=== PATIENT | male | born 1950 | race Caucasian/White ===

== ENCOUNTER → 2017-08-04 10:48 | Outpatient (CLI) | payer MEDICARE, SELFPAY ==
[2017-08-04 14:11] LABS: Albumin, Serum 3.2 g/dL (3.2-5.0); BUN 25 mg/dL (7-18); BUN/Creat Ratio 13.7 RATIO (10-20); Calcium,Total 9.6 mg/dL (8.5-10.1); Chloride 104 mmol/L (98-107); Creatinine, Serum 1.82 mg/dL (0.70-1.30); EST Glomerular Filtration Rate 40 mL/min (>60); Est Glom Filt Rate - Afr Amer 48 mL/min (>60); Glucose 151 mg/dL (74-106); Phosphorus 3.2 mg/dL (2.5-4.9); Potassium 4.8 mmol/L (3.5-5.1); Sodium Level 139 mmol/L (136-145)
== END ==
PROVIDERS: Family Provider Family Medicine; PCP Family Medicine; Visit Provider Internal Medicine Nephrology
DX: N18.3 Chronic kidney disease, stage 3 (moderate) (principal)
CPT/HCPCS: 36415; 80069

== ENCOUNTER → 2017-12-07 15:07 | Outpatient (CLI) | payer MEDICARE, SELFPAY ==
[2017-12-07 16:30] LABS: Albumin, Serum 3.5 g/dL (3.2-5.0); BUN 27 mg/dL (7-18); BUN/Creat Ratio 13.5 RATIO (10-20); Calcium,Total 9.4 mg/dL (8.5-10.1); Chloride 105 mmol/L (98-107); EST Glomerular Filtration Rate 36 mL/min (>60); Est Glom Filt Rate - Afr Amer 43 mL/min (>60); Glucose 123 mg/dL (74-106); Phosphorus 2.8 mg/dL (2.5-4.9); Potassium 4.6 mmol/L (3.5-5.1); Sodium Level 143 mmol/L (136-145)
== END ==
PROVIDERS: Family Provider Family Medicine; PCP Family Medicine; Visit Provider Internal Medicine Nephrology
DX: N18.3 Chronic kidney disease, stage 3 (moderate) (principal); E11.9 Type 2 diabetes mellitus without complications
CPT/HCPCS: 36415; 80069

== ENCOUNTER 2018-02-17 11:38 | Day surgery (SDC) | payer OTHER, MEDICARE, SELFPAY ==
[2018-02-17] VITALS (7 sets, daily range): BP systolic 96–120; BP diastolic 60–84; PULSE 48–64; RESP 15–16; TEMP 36.4–37.2; O2SAT 91–100; BMI 37.7
[2018-02-17 13:20] LABS: Bedside Glucose 175 mg/dL (70-110)
[2018-02-17] MEDS: Cefazolin 2 GM in 0.9% Normal Saline 100 ML IV (14:16)
[2018-02-17] MEDS: Bupiv/Epi 0.5% Mpf 30 ML Vial (14:35)
[2018-02-17] MEDS: VIAFLEX IV (14:54)
[2018-02-17] MEDS: HYDROMORPHONE HP IV (14:54)
== END 2018-02-17 16:16 | disposition home or self-care (01) ==
LOC: SDC 11:41 → AC 11:43
PROVIDERS: Family Provider Family Medicine; PCP Family Medicine; Referring Provider Anesthesiology Pain Medicine; Visit Provider Anesthesiology Pain Medicine
DX: Z45.42 Encounter for adjustment and management of neurostimulator (principal); M51.17 Intervertebral disc disorders with radiculopathy, lumbosacral region; S23.3XXA Sprain of ligaments of thoracic spine, initial encounter; M96.1 Postlaminectomy syndrome, not elsewhere classified; E11.22 Type 2 diabetes mellitus with diabetic chronic kidney disease; I12.9 Hypertensive chronic kidney disease with stage 1 through stage 4 chronic kidney disease, or unspecified chronic kidney disease; N18.9 Chronic kidney disease, unspecified; F41.9 Anxiety disorder, unspecified; F32.9 Major depressive disorder, single episode, unspecified; G47.30 Sleep apnea, unspecified; Z98.1 Arthrodesis status; Z79.82 Long term (current) use of aspirin; Z79.84 Long term (current) use of oral hypoglycemic drugs; Z79.899 Other long term (current) drug therapy
CPT/HCPCS: 63688; 82962; J7120

== ENCOUNTER 2019-02-23 15:30 | Emergency (ER) | payer MEDICARE, OTHER, SELFPAY ==
[2019-02-23 15:31] VITALS: BP 149/93; PULSE 60; RESP 17; TEMP 36.8; O2SAT 91; BMI 38.5
--- NOTE | 2019-02-23 16:09 | VDLE_ITS ---
Reason For Study: Swelling RIGHT LEFT GSV is normal. GSV is normal. CFV is compressible, spontaneous, phasic, CFV is compressible, spontaneous, phasic, competent and demonstrates normal competent, and demonstrates normal augmentation. augmentation. FV is compressible, spontaneous, phasic, FV is compressible, spontaneous, phasic, competent and demonstrates normal competent and demonstrates normal augmentation. augmentation. POP V is compressible, spontaneous, phasic, POP V is compressible, spontaneous, phasic, competent and demonstrates normal competent and demonstrates normal augmentation. augmentation. T/P Trunk is compressible. T/P Trunk is compressible. PTV is compressible. PTV is compressible. RT PerV is compressible. LT PerV is compressible. Procedure Exam performed portable in ED. A preliminary report was called and/or faxed to [facility]. Interpretation Summary No evidence for acute deep venous thrombosis bilateral lower extremities with patent and compressible bilateral great saphenous veins. Ordering Physician: Glenn Soriano Referring Physician: Steve Trejo Performed By: Lilia Marks RVT
[2019-02-23 16:28] LABS: Absolute Lymphocyte Count 1.95 X10^3/uL (0.83-4.51); Basophil# 0.05 X10^3/uL; Basophil% 0.8 % (0-1); Eosinophil# 0.18 X10^3/uL; Hematocrit 53.8 % (40-54); Hemoglobin 16.2 g/dL (13.0-16.5); Lymphocyte # 1.95 X10^3/ul (4.0); Lymphocyte % 32.4 % (19-41); Mean Corp Hgb Conc 30.1 g/dL (32-36); Mean Corpuscular Hgb 24.9 pg (27.0-32.0); Mean Corpuscular Volume 82.8 fL (80-94); Mean Platelet Vol. 10.7 fl (6.2-12.0); Monocyte# 0.77 X10^3/uL; Monocyte% 12.8 % (0-10); NRBC Flagged by Analyzer 0 % (0-5); Neutrophil # 3.04 X10^3/uL (2.7-7.7); Neutrophil % 50.7 % (47-70); Platelet Count 139 K/mm3 (150-450); RBC Distribution Width CV 15.9 % (11.6-14.6); RBC Distribution Width SD 45.1 fl (35.1-43.9)
--- NOTE | 2019-02-23 16:41 | ED.VIS.GEN ---
History of Present Illness Chief Complaint: Lower Extremity Injury Detail of Chief Complaint: swelling Informant: Patient, Family Onset: Weeks - 1.5 Context: Gradual Onset Timing: Continuous Quality: swollen, not painful Location: both legs; worse on left Current Severity: Severe Maximum Severity: Severe Worsened by: nothing in particular Relieved by: nothing; taking his lasix, not helping Associated Symptoms: none. no fevers, pain, sob, orthopnea Narrative: Patient has chronic edema in his legs. He states for the past week and a half it has been worse, and he has noticed that it is worse on the left. He was seen in the office today and sent to the ER to obtain Dopplers to rule out DVTs in both legs. He has never had a DVT and he is not anticoagulated. He states they have chronically appeared dark red, which is the appearance they are now. He denies a history of congestive heart failure but he does have significant renal disease and is scheduled to see nephrology within the next week or 2. Has had no recent blood work. No thoracic or systemic symptoms with this. - Past Medical History (1) Type 2 diabetes mellitus Status: Chronic (2) Depression Status: Chronic (3) ANNETTE (obstructive sleep apnea) Status: Chronic (4) BPH (benign prostatic hyperplasia) Status: Chronic (5) Mixed hyperlipidemia Status: Chronic (6) Varicose veins of both lower extremities Status: Chronic (7) Neuropathy Status: Chronic (8) GERD (gastroesophageal reflux disease) Status: Chronic Past Medical History - Allergies and Home Meds Allergies/Adverse Reactions: Allergies No Known Allergies Allergy (Verified 02/23/19 15:31) Primary Care Physician: Steve Trejo MD [Primary Care Provider] - Smoking Status: Never smoker Drugs: None Review of Systems General: Denies: Chills, Fever, Sweats Eyes: Denies: Visual changes - bilaterally, Diplopia ENT: Denies: Rhinorrhea, Sore throat Cardiovascular: Denies: Chest pain, Palpitations Respiratory: Denies: Dyspnea, Cough, Dyspnea on exertion, Orthopnea Gastrointestinal: Denies: Abdominal pain, Nausea, Vomiting, Diarrhea, Melena, Hematochezia Genitourinary: Denies: Dysuria, Hematuria, Frequency Musculoskeletal: Reports: Back pain - chronic, controlled by dilaudid pain pump, Swelling. Denies: Extremity Pain Skin: Denies: Rash, Wounds Neurological: Reports: Parasthesia - feet. Denies: Headache, Weakness Physical Exam Vital Signs/Narrative: Vital Signs Temp Pulse Resp BP Pulse Ox 02/23/19 15:31 98.2 F 60 17 149/93 H 91 Inital Vital Signs reviewed: Yes General: Well nourished, Well developed, No Acute Distress Head: Normocephalic, Atraumatic ENT: Moist mucous membranes, No rhinorrhea Neck: Supple, Nontender Cardiovascular: Regular rate, Regular rhythm, No murmurs, - - 3-second cap refill both feet without palpable dorsalis pedis or posterior tibial pulses. Respiratory: No distress, CTA bilaterally, Chest nontender Abdomen: Soft, Nontender, Nondistended, Normal bowel sounds Extremities: Edema - With nontender blanching dark red stasis dermatitis bilaterally, symmetric. 2+ edema all the way to the thighs. I do not detect any clinically obvious asymmetry. There are a couple of scattered healing wounds on both, all of which are nontender and without abscess or obvious infection. Skin: Normal color - Except for stasis dermatitis bilateral lower extremities from mid sloan down to toes, No rash. Negative for: Cyanosis Neurological: Alert, Oriented x3, Cranial nerves II-XII grossly intact, Normal Strength, Normal Sensation, Normal Gait Psychological: - - Flat affect noted Diagnostic/Tx/Re-eval Laboratory Results 02/23/19 02/23/19 16:15 16:15 WBC 6.0 RBC 6.50 H Hgb 16.2 Hct 53.8 MCV 82.8 MCH 24.9 L MCHC 30.1 L RDW Std Deviation 45.1 H RDW Coeff of Kathy 15.9 H Plt Count 139 L MPV 10.7 Immature Gran % (Auto) 0.300 Neut % (Auto) 50.7 Lymph % (Auto) 32.4 Sebastian % (Auto) 12.8 H Eos % (Auto) 3.0 Baso % (Auto) 0.8 Absolute Neuts (auto) 3.0 Absolute Lymphs (auto) 1.95 Nucleated RBC % 0 Sodium 136 Potassium 5.1 Chloride 100 Carbon Dioxide 30.0 Anion Gap 6 BUN 39 H Creatinine 2.11 H Estim Creat Clear Calc 36.18 Est GFR (MDRD) Af Amer 41 L Est GFR (MDRD) Non-Af 34 L BUN/Creatinine Ratio 18.5 Glucose 108 H Calcium 9.8 - Medical Decision Making Ultrasound of both lower extremities was obtained, ruling out acute DVT in both legs. His renal function is relatively stable, his creatinine is lower than it was a year ago. Advised to follow-up and continue his Lasix, increase elevation of his lower extremities for now. There is no evidence of an ischemic limb at this time. ED Disposition - Plan for ED Patient: Disposition: Home or Assisted Living Diagnosis: Chronic renal failure, Bilateral lower extremity edema, Stasis dermatitis of both legs Instructions: ED Peripheral Edema, Bilateral Referrals: Steve Trejo MD [Primary Care Provider] - 3-5 Days
[2019-02-23 16:43] LABS: Anion Gap 6 (5-15); BUN 39 mg/dL (7-18); BUN/Creat Ratio 18.5 RATIO (10-20); Calcium,Total 9.8 mg/dL (8.5-10.1); Chloride 100 mmol/L (98-107); Creatinine, Serum 2.11 mg/dL (0.70-1.30); EST Glomerular Filtration Rate 34 mL/min (>60); Est Glom Filt Rate - Afr Amer 41 mL/min (>60); Estimated Creatinine Clearance 36.18 ml/min; Glucose 108 mg/dL (74-106); Potassium 5.1 mmol/L (3.5-5.1); Sodium Level 136 mmol/L (136-145)
== END 2019-02-23 17:52 | disposition home or self-care (01) ==
PROVIDERS: Emergency Provider Emergency Medicine; Family Provider Family Medicine; PCP Family Medicine
DX: E11.22 Type 2 diabetes mellitus with diabetic chronic kidney disease (principal); N18.9 Chronic kidney disease, unspecified; I83.12 Varicose veins of left lower extremity with inflammation; I83.11 Varicose veins of right lower extremity with inflammation; F32.9 Major depressive disorder, single episode, unspecified; G47.33 Obstructive sleep apnea (adult) (pediatric); N40.0 Benign prostatic hyperplasia without lower urinary tract symptoms; E78.2 Mixed hyperlipidemia; E11.40 Type 2 diabetes mellitus with diabetic neuropathy, unspecified; K21.9 Gastro-esophageal reflux disease without esophagitis; M54.9 Dorsalgia, unspecified; G89.29 Other chronic pain; Z97.8 Presence of other specified devices; Z79.82 Long term (current) use of aspirin; Z79.84 Long term (current) use of oral hypoglycemic drugs; Z79.899 Other long term (current) drug therapy
CPT/HCPCS: 80048; 85025; 93970; 99283

== ENCOUNTER → 2019-10-12 10:01 | Outpatient (CLI) | payer MEDICARE, OTHER, SELFPAY ==
--- NOTE | 2019-10-12 10:07 | CT_ITS ---
STUDY: CT ABDOMEN AND PELVIS WITHOUT CONTRAST REASON FOR EXAM: Male, 69 years old. NAUSEA, ABD/BACK PAIN, APPENDECTOMY RADIATION DOSAGE (If Supplied By Facility): CTDIvol = ( 31.82 ) mGy, DLP = ( 1677.46 ) mGycm TECHNIQUE: Transaxial images were obtained from the dome of the diaphragm to the symphysis pubis without oral contrast, and without intravenous contrast. Sagittal and coronal images were reconstructed. Individualized dose optimization techniques were used for this CT. COMPARISON: None. FINDINGS: The visualized lung bases are unremarkable. The visualized portions of the heart are within normal limits. Normal liver. There are multiple gallstones. Normal spleen. There is diffuse atrophy of the pancreas. Normal bilateral adrenal glands. No obstructive uropathy, there is a punctate 2 to 3 mm nonobstructing stone in the lower pole of the left kidney Normal visualized stomach. Normal small intestine. Retained stool noted throughout the colon. There are scattered colonic diverticula. There are surgical clips in the region of the appendix consistent with a prior appendectomy. There is diffuse atherosclerotic calcification of the abdominal aorta, without a demonstrated aneurysm. Normal inferior vena cava. Normal retroperitoneum. Normal urinary bladder. Penile implants noted. Normal abdominal wall. There are diffuse degenerative and postsurgical changes of the visualized lumbar spine. Degenerative bony changes noted in the pelvis CT/Abdomen/Pelvis without Cont IMPRESSION: Cholelithiasis, no CT evidence of acute cholecystitis Nonobstructing left nephrolithiasis Degenerative and postsurgical changes in the lumbar spine, no hardware complication. Electronically Signed: Duane Odonnell MD at 10:55 EDT , Service support ,
== END ==
PROVIDERS: PCP Family Medicine; Referring Provider Nurse Practitioner Adult Health; Visit Provider Nurse Practitioner Adult Health
DX: R11.0 Nausea (principal)
CPT/HCPCS: 74176

== ENCOUNTER 2019-11-14 15:19 | Emergency (ER) | payer OTHER, MEDICARE, SELFPAY ==
[2019-11-14 15:21] VITALS: BP 141/83; PULSE 85; RESP 18; TEMP 36.8; O2SAT 93; BMI 41.0
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
[2019-11-14] MEDS: Diphth,Pertuss(Acell),Tet Vac 0.5 ML Vial IM (16:38)
[2019-11-14] MEDS: HYDROcodone Bitartrate/Apap 5/325 Tablet PO (16:39)
== END 2019-11-14 18:58 | disposition home or self-care (01) ==
PROVIDERS: Emergency Provider Emergency Medicine; PCP Family Medicine
DX: S61.011A Laceration without foreign body of right thumb without damage to nail, initial encounter (principal); M54.5 Low back pain; V43.52XA Car driver injured in collision with other type car in traffic accident, initial encounter; Y93.9 Activity, unspecified; Y92.9 Unspecified place or not applicable; E11.40 Type 2 diabetes mellitus with diabetic neuropathy, unspecified; F32.9 Major depressive disorder, single episode, unspecified; G47.33 Obstructive sleep apnea (adult) (pediatric); N40.0 Benign prostatic hyperplasia without lower urinary tract symptoms; K21.9 Gastro-esophageal reflux disease without esophagitis; E78.2 Mixed hyperlipidemia; Z79.82 Long term (current) use of aspirin; Z79.84 Long term (current) use of oral hypoglycemic drugs; Z79.899 Other long term (current) drug therapy
CPT/HCPCS: 12002; 72100; 73130; 90715; 99285

== ENCOUNTER → 2019-11-21 11:18 | Outpatient (CLI) | payer MEDICARE, OTHER, SELFPAY ==
[2019-11-14 15:21] VITALS: BMI 41.0
[2019-11-21 12:30] LABS: Protein, Urine (Random) 32.4 mg/dL (<11.9); Protein:Creat Ratio 597 mg/g CRE (0-200)
[2019-11-21 12:35] LABS: Anion Gap 2 (5-15); BUN 46 mg/dL (7-18); Calcium,Total 9.7 mg/dL (8.5-10.1); Chloride 107 mmol/L (98-107); Creatinine, Serum 2.71 mg/dL (0.70-1.30); EST Glomerular Filtration Rate 25 mL/min (>60); Est Glom Filt Rate - Afr Amer 30 mL/min (>60); Glucose 102 mg/dL (74-106); Potassium 5.8 mmol/L (3.5-5.1); Sodium Level 139 mmol/L (136-145)
== END ==
PROVIDERS: PCP Family Medicine; Visit Provider Internal Medicine Nephrology
DX: E11.9 Type 2 diabetes mellitus without complications (principal); E87.5 Hyperkalemia
CPT/HCPCS: 36415; 80048; 82570; 84156

== ENCOUNTER → 2020-04-09 11:15 | Outpatient (CLI) | payer MEDICARE, OTHER, SELFPAY | PROVIDERS: PCP Family Medicine; Visit Provider Internal Medicine Nephrology | DX: N18.4 Chronic kidney disease, stage 4 (severe) (principal) ==

== ENCOUNTER → 2020-10-20 08:30 | Outpatient (CLI) | payer MEDICARE, OTHER, SELFPAY ==
[2020-10-20 09:12] LABS: Albumin, Serum 3.6 g/dL (3.2-5.0); BUN 42 mg/dL (7-18); BUN/Creat Ratio 18.8 RATIO (10-20); Calcium,Total 8.8 mg/dL (8.5-10.1); Chloride 103 mmol/L (98-107); Creatinine, Serum 2.24 mg/dL (0.70-1.30); EST Glomerular Filtration Rate 31 mL/min (>60); Est Glom Filt Rate - Afr Amer 38 mL/min (>60); Glucose 115 mg/dL (74-106); Phosphorus 2.8 mg/dL (2.5-4.9); Potassium 4.9 mmol/L (3.5-5.1); Sodium Level 136 mmol/L (136-145)
[2020-10-21 08:36] LABS: PTHIN 130.3 pg/mL (18.4-80.1)
== END ==
PROVIDERS: PCP Family Medicine; Referring Provider Internal Medicine Nephrology; Visit Provider Internal Medicine Nephrology
DX: N18.4 Chronic kidney disease, stage 4 (severe) (principal)
CPT/HCPCS: 36415; 80069; 83970

== ENCOUNTER → 2021-02-26 11:50 | Outpatient (CLI) | payer MEDICARE, OTHER, SELFPAY ==
[2021-02-26 12:57] LABS: Hematocrit 48.5 % (40-54); Hemoglobin 14.3 g/dL (13.0-16.5); Mean Corp Hgb Conc 29.5 g/dL (32-36); Mean Corpuscular Hgb 24.4 pg (27.0-32.0); Mean Corpuscular Volume 82.8 fL (80-94); Mean Platelet Vol. 10.9 fl (6.2-12.0); Platelet Count 114 K/mm3 (150-450); RBC Distribution Width CV 15.7 % (11.6-14.6); RBC Distribution Width SD 46.9 fl (35.1-43.9); Red Blood Count 5.86 M/mm3 (4.6-6.2); White Blood Count 5.1 K/mm3 (4.4-11.0)
[2021-02-26 13:21] LABS: Albumin, Serum 3.2 g/dL (3.2-5.0); BUN 43 mg/dL (7-18); BUN/Creat Ratio 22.1 RATIO (10-20); Chloride 103 mmol/L (98-107); Creatinine, Serum 1.95 mg/dL (0.70-1.30); EST Glomerular Filtration Rate 36 mL/min (>60); Est Glom Filt Rate - Afr Amer 44 mL/min (>60); Glucose 120 mg/dL (74-106); PTHIN 120.9 pg/mL (18.4-80.1); Phosphorus 2.7 mg/dL (2.5-4.9); Potassium 4.6 mmol/L (3.5-5.1); Sodium Level 136 mmol/L (136-145)
== END ==
PROVIDERS: PCP Family Medicine; Referring Provider Internal Medicine Nephrology; Visit Provider Internal Medicine Nephrology
DX: E11.22 Type 2 diabetes mellitus with diabetic chronic kidney disease (principal); N18.4 Chronic kidney disease, stage 4 (severe)
CPT/HCPCS: 36415; 80069; 83970; 85027

== ENCOUNTER → 2021-09-02 | Outpatient (CLI) | payer MEDICARE, OTHER, SELFPAY ==
[2021-09-02 13:40] LABS: Protein, Urine (Random) 32.6 mg/dL (<11.9); Protein:Creat Ratio 569 mg/g CRE (0-200)
[2021-09-02 13:53] LABS: Albumin, Serum 3.4 g/dL (3.2-5.0); BUN 61 mg/dL (7-18); BUN/Creat Ratio 18.2 RATIO (10-20); Calcium,Total 8.9 mg/dL (8.5-10.1); Chloride 104 mmol/L (98-107); Creatinine, Serum 3.36 mg/dL (0.70-1.30); EST Glomerular Filtration Rate 19 mL/min (>60); Est Glom Filt Rate - Afr Amer 24 mL/min (>60); Glucose 122 mg/dL (74-106); Phosphorus 3.8 mg/dL (2.5-4.9); Potassium 5.5 mmol/L (3.5-5.1); Sodium Level 137 mmol/L (136-145)
[2021-09-02 13:54] LABS: PTHIN 215.4 pg/mL (18.4-80.1)
== END | disposition home or self-care (01) ==
LOC: LABSPEC 12:20 → LAB 12:24
PROVIDERS: PCP Family Medicine; Referring Provider Internal Medicine Nephrology; Visit Provider Internal Medicine Nephrology
DX: N18.4 Chronic kidney disease, stage 4 (severe) (principal); R80.9 Proteinuria, unspecified
CPT/HCPCS: 36415; 80069; 82570; 83970; 84156

== ENCOUNTER → 2021-09-08 | Outpatient (CLI) | payer MEDICARE, OTHER, SELFPAY ==
[2021-09-08 13:04] LABS: Anion Gap 5 (5-15); BUN 45 mg/dL (7-18); BUN/Creat Ratio 20.3 RATIO (10-20); Calcium,Total 9.1 mg/dL (8.5-10.1); Chloride 102 mmol/L (98-107); Creatinine, Serum 2.22 mg/dL (0.70-1.30); EST Glomerular Filtration Rate 31 mL/min (>60); Est Glom Filt Rate - Afr Amer 38 mL/min (>60); Glucose 195 mg/dL (74-106); Potassium 4.7 mmol/L (3.5-5.1); Sodium Level 137 mmol/L (136-145)
== END | disposition home or self-care (01) ==
LOC: POLAB3 11:44
PROVIDERS: PCP Family Medicine; Visit Provider Internal Medicine Nephrology
DX: E87.5 Hyperkalemia (principal)
CPT/HCPCS: 36415; 80048

== ENCOUNTER → 2021-12-03 | Outpatient (CLI) | payer MEDICARE, OTHER, SELFPAY ==
[2021-12-03 13:05] LABS: PTHIN 133.4 pg/mL (18.4-80.1)
[2021-12-03 13:07] LABS: Albumin, Serum 3.3 g/dL (3.2-5.0); BUN 54 mg/dL (7-18); BUN/Creat Ratio 25.7 RATIO (10-20); Calcium,Total 9.6 mg/dL (8.5-10.1); Chloride 110 mmol/L (98-107); EST Glomerular Filtration Rate 33 mL/min (>60); Est Glom Filt Rate - Afr Amer 40 mL/min (>60); Glucose 122 mg/dL (74-106); Phosphorus 2.4 mg/dL (2.5-4.9); Potassium 5.3 mmol/L (3.5-5.1); Sodium Level 139 mmol/L (136-145)
== END | disposition home or self-care (01) ==
LOC: LAB 12:01
PROVIDERS: PCP Family Medicine; Visit Provider Internal Medicine Nephrology
DX: N18.4 Chronic kidney disease, stage 4 (severe) (principal); N25.81 Secondary hyperparathyroidism of renal origin
CPT/HCPCS: 36415; 80069; 83970

== ENCOUNTER → 2021-12-08 | Outpatient (CLI) | payer MEDICARE, OTHER, SELFPAY ==
[2021-12-08 13:06] LABS: Anion Gap 5 (5-15); BUN 53 mg/dL (7-18); BUN/Creat Ratio 27.6 RATIO (10-20); Calcium,Total 8.9 mg/dL (8.5-10.1); Chloride 107 mmol/L (98-107); Creatinine, Serum 1.92 mg/dL (0.70-1.30); EST Glomerular Filtration Rate 37 mL/min (>60); Est Glom Filt Rate - Afr Amer 45 mL/min (>60); Glucose 151 mg/dL (74-106); Potassium 5.4 mmol/L (3.5-5.1); Sodium Level 137 mmol/L (136-145)
== END | disposition home or self-care (01) ==
LOC: POLAB3 10:58
PROVIDERS: PCP Family Medicine; Visit Provider Internal Medicine Nephrology
DX: E87.5 Hyperkalemia (principal)
CPT/HCPCS: 36415; 80048

== ENCOUNTER → 2022-05-12 | Outpatient (CLI) | payer MEDICARE, OTHER, SELFPAY ==
[2022-05-12 13:03] LABS: PTHIN 105.9 pg/mL (18.4-80.1)
[2022-05-12 13:07] LABS: Albumin, Serum 3.3 g/dL (3.2-5.0); BUN 40 mg/dL (7-18); BUN/Creat Ratio 17.7 RATIO (10-20); Calcium,Total 9.6 mg/dL (8.5-10.1); Chloride 106 mmol/L (98-107); Creatinine, Serum 2.26 mg/dL (0.70-1.30); EST Glomerular Filtration Rate 31 mL/min (>60); Est Glom Filt Rate - Afr Amer 37 mL/min (>60); Glucose 115 mg/dL (74-106); Phosphorus 2.7 mg/dL (2.5-4.9); Potassium 4.9 mmol/L (3.5-5.1); Sodium Level 139 mmol/L (136-145)
== END | disposition home or self-care (01) ==
LOC: LAB 11:19
PROVIDERS: PCP Family Medicine; Visit Provider Internal Medicine Nephrology
DX: E11.22 Type 2 diabetes mellitus with diabetic chronic kidney disease (principal); N18.4 Chronic kidney disease, stage 4 (severe); N25.81 Secondary hyperparathyroidism of renal origin
CPT/HCPCS: 36415; 80069; 83970

== ENCOUNTER → 2022-07-20 | Outpatient (CLI) | payer MEDICARE, OTHER, SELFPAY ==
[2022-07-20 13:48] LABS: Albumin, Serum 3.2 g/dL (3.2-5.0); BUN 43 mg/dL (7-18); BUN/Creat Ratio 17.6 RATIO (10-20); Calcium,Total 9.4 mg/dL (8.5-10.1); Chloride 108 mmol/L (98-107); Creatinine, Serum 2.44 mg/dL (0.70-1.30); EST Glomerular Filtration Rate 28 mL/min (>60); Est Glom Filt Rate - Afr Amer 34 mL/min (>60); Glucose 129 mg/dL (74-106); Phosphorus 2.3 mg/dL (2.5-4.9); Potassium 5.6 mmol/L (3.5-5.1); Sodium Level 135 mmol/L (136-145)
== END | disposition home or self-care (01) ==
LOC: LAB 12:29
PROVIDERS: PCP Family Medicine; Referring Provider Internal Medicine Nephrology; Visit Provider Internal Medicine Nephrology
DX: N18.4 Chronic kidney disease, stage 4 (severe) (principal)
CPT/HCPCS: 36415; 80069

== ENCOUNTER → 2022-08-04 | Outpatient (CLI) | payer OTHER, MEDICARE, SELFPAY ==
[2022-08-04 15:48] LABS: Amphetamine Urine VISTA NEGATIVE (<1000 ng/mL); Barbiturate Urine VISTA NEGATIVE (< 200 ng/mL); Benzodiazepine Urine VISTA NEGATIVE (< 200 ng/mL); Cocaine Urine VISTA NEGATIVE (< 300 ng/mL); Ecstacy Urine VISTA NEGATIVE (< 500 ng/mL); Methadone Urine VISTA NEGATIVE (< 300 ng/mL); PCP Urine VISTA NEGATIVE (< 25 ng/mL); THC Urine VISTA NEGATIVE (< 50 ng/mL); Vista UDS pH Range 5
== END | disposition home or self-care (01) ==
PROVIDERS: PCP Family Medicine; Referring Provider Anesthesiology Pain Medicine; Visit Provider Anesthesiology Pain Medicine
DX: F11.20 Opioid dependence, uncomplicated (principal)
CPT/HCPCS: 80307

== ENCOUNTER → 2022-08-17 | Outpatient (CLI) | payer MEDICARE, OTHER, SELFPAY ==
[2022-08-17 13:13] LABS: Anion Gap 4 (5-15); BUN 40 mg/dL (7-18); BUN/Creat Ratio 14.9 RATIO (10-20); Calcium,Total 9.8 mg/dL (8.5-10.1); Chloride 106 mmol/L (98-107); Creatinine, Serum 2.68 mg/dL (0.70-1.30); EST Glomerular Filtration Rate 25 mL/min (>60); Est Glom Filt Rate - Afr Amer 30 mL/min (>60); Glucose 160 mg/dL (74-106); Sodium Level 140 mmol/L (136-145)
== END | disposition home or self-care (01) ==
LOC: POLAB3 11:55
PROVIDERS: PCP Family Medicine; Visit Provider Internal Medicine Nephrology
DX: E87.5 Hyperkalemia (principal)
CPT/HCPCS: 36415; 80048

== ENCOUNTER → 2022-12-31 | Outpatient (CLI) | payer MEDICARE, OTHER, SELFPAY ==
[2022-12-31 16:05] LABS: Albumin, Serum 3.1 g/dL (3.2-5.0); BUN 24 mg/dL (7-18); BUN/Creat Ratio 10.1 RATIO (10-20); Calcium,Total 9.4 mg/dL (8.5-10.1); Chloride 108 mmol/L (98-107); Creatinine, Serum 2.38 mg/dL (0.70-1.30); EST Glomerular Filtration Rate 29 mL/min (>60); Est Glom Filt Rate - Afr Amer 35 mL/min (>60); Glucose 151 mg/dL (74-106); Phosphorus 2.1 mg/dL (2.5-4.9); Potassium 5.5 mmol/L (3.5-5.1); Sodium Level 134 mmol/L (136-145)
== END | disposition home or self-care (01) ==
LOC: LAB 12:03
PROVIDERS: PCP Family Medicine; Referring Provider Internal Medicine Nephrology; Visit Provider Internal Medicine Nephrology
DX: E11.22 Type 2 diabetes mellitus with diabetic chronic kidney disease (principal); N18.4 Chronic kidney disease, stage 4 (severe)
CPT/HCPCS: 36415; 80069

== ENCOUNTER → 2023-01-05 | Outpatient (CLI) | payer MEDICARE, OTHER, SELFPAY ==
[2023-01-05 12:40] LABS: Potassium 5.3 mmol/L (3.5-5.1)
== END | disposition home or self-care (01) ==
PROVIDERS: PCP Family Medicine; Visit Provider Internal Medicine Nephrology
DX: E87.5 Hyperkalemia (principal)
CPT/HCPCS: 36415; 84132

== ENCOUNTER → 2023-01-27 | Outpatient (CLI) | payer MEDICARE, OTHER, SELFPAY | END | disposition home or self-care (01) | LOC: LAB 11:08 | PROVIDERS: PCP Family Medicine; Referring Provider Internal Medicine Nephrology; Visit Provider Internal Medicine Nephrology | DX: E11.22 Type 2 diabetes mellitus with diabetic chronic kidney disease (principal); N18.4 Chronic kidney disease, stage 4 (severe) ==

== ENCOUNTER → 2023-03-16 | Outpatient (CLI) | payer MEDICARE, OTHER, SELFPAY ==
[2023-03-16 13:40] LABS: Hematocrit 55.2 % (40-54); Mean Corp Hgb Conc 30.8 g/dL (32-36); Mean Corpuscular Hgb 28.7 pg (27.0-32.0); Mean Corpuscular Volume 93.1 fL (80-94); Mean Platelet Vol. 10.6 fl (6.2-12.0); Platelet Count 111 K/mm3 (150-450); RBC Distribution Width CV 12.2 % (11.6-14.6); RBC Distribution Width SD 42.4 fl (35.1-43.9); Red Blood Count 5.93 M/mm3 (4.6-6.2)
[2023-03-16 13:56] LABS: Albumin, Serum 3.2 g/dL (3.2-5.0); BUN 30 mg/dL (7-18); BUN/Creat Ratio 12.4 RATIO (10-20); Chloride 105 mmol/L (98-107); Creatinine, Serum 2.41 mg/dL (0.70-1.30); EST Glomerular Filtration Rate 28 mL/min (>60); Est Glom Filt Rate - Afr Amer 34 mL/min (>60); Glucose 132 mg/dL (74-106); Phosphorus 2.7 mg/dL (2.5-4.9); Potassium 5.1 mmol/L (3.5-5.1); Sodium Level 138 mmol/L (136-145)
[2023-03-16 13:58] LABS: PTHIN 83.3 pg/mL (18.4-80.1)
== END | disposition home or self-care (01) ==
LOC: LAB 13:12
PROVIDERS: PCP Family Medicine; Visit Provider Internal Medicine Nephrology
DX: E11.22 Type 2 diabetes mellitus with diabetic chronic kidney disease (principal); N18.4 Chronic kidney disease, stage 4 (severe)
CPT/HCPCS: 36415; 80069; 83970; 85027

== ENCOUNTER → 2023-07-20 | Outpatient (CLI) | payer MEDICARE, OTHER, SELFPAY ==
[2023-07-20 13:30] LABS: PTHIN 132.2 pg/mL (18.4-80.1)
[2023-07-20 13:33] LABS: Albumin, Serum 3.1 g/dL (3.2-5.0); BUN 33 mg/dL (7-18); BUN/Creat Ratio 15.5 RATIO (10-20); Calcium,Total 9.3 mg/dL (8.5-10.1); Chloride 108 mmol/L (98-107); Creatinine, Serum 2.13 mg/dL (0.70-1.30); EST Glomerular Filtration Rate 33 mL/min (>60); Est Glom Filt Rate - Afr Amer 40 mL/min (>60); Glucose 211 mg/dL (74-106); Phosphorus 2.2 mg/dL (2.5-4.9); Potassium 5.2 mmol/L (3.5-5.1); Sodium Level 136 mmol/L (136-145)
== END | disposition home or self-care (01) ==
LOC: LAB 11:04
PROVIDERS: PCP Family Medicine; Referring Provider Internal Medicine Nephrology; Visit Provider Internal Medicine Nephrology
DX: E11.22 Type 2 diabetes mellitus with diabetic chronic kidney disease (principal); N25.81 Secondary hyperparathyroidism of renal origin
CPT/HCPCS: 36415; 36416; 80069; 83970; 85610

== ENCOUNTER → 2023-07-26 | Outpatient (CLI) | payer MEDICARE, OTHER, SELFPAY ==
[2023-07-26 13:43] LABS: Protein, Urine (Random) 87.2 mg/dL (<11.9); Protein:Creat Ratio 1101 mg/g CRE (0-200)
[2023-07-26 13:52] LABS: Albumin, Serum 3.2 g/dL (3.2-5.0); BUN 51 mg/dL (7-18); BUN/Creat Ratio 21.1 RATIO (10-20); Chloride 109 mmol/L (98-107); Creatinine, Serum 2.42 mg/dL (0.70-1.30); EST Glomerular Filtration Rate 28 mL/min (>60); Est Glom Filt Rate - Afr Amer 34 mL/min (>60); Glucose 160 mg/dL (74-106); Phosphorus 2.9 mg/dL (2.5-4.9); Sodium Level 137 mmol/L (136-145)
== END | disposition home or self-care (01) ==
LOC: LAB 11:34
PROVIDERS: PCP Family Medicine; Referring Provider Internal Medicine Nephrology; Visit Provider Internal Medicine Nephrology
DX: E11.22 Type 2 diabetes mellitus with diabetic chronic kidney disease (principal)
CPT/HCPCS: 36415; 80069; 82570; 84156

== ENCOUNTER → 2023-08-24 | Outpatient (CLI) | payer MEDICARE, OTHER, SELFPAY ==
--- NOTE | 2023-08-24 15:12 | NEURO ---
NCS and/or EMG Patient Report Ordering Doctor: Steve Trejo DATE OF SERVICE: 08/24/23 Matty presents for electrodiagnostic testing of the upper limbs. He reports numbness and tingling in both hands and weakness. Electrodiagnostic findings: Right median motor nerve demonstrates prolonged distal latency with normal amplitude and reduced conduction velocity. Left median motor nerve demonstrates prolonged distal latency, with normal amplitude and reduced conduction velocity. Ulnar motor nerve demonstrates normal distal latency and amplitude with reduced conduction velocity. There is no significant drop in conduction across the elbow. Left ulnar motor nerve demonstrates normal distal latency and amplitude with reduced conduction velocity. There is no significant drop in conduction across the elbow. Prolonged right median, left median and left ulnar F?waves. Prolonged median sensory latency at the wrist bilaterally. Needle EMG testing was performed in the upper limbs. All muscles tested showed no evidence of denervation with normal motor unit action potentials. Electrodiagnostic Impression: This is an abnormal study. 1. Electrodiagnostic findings are suggestive of bilateral median mononeuropathy. This is consistent with a moderate bilateral carpal tunnel syndrome. 2. Recommend correlation with the lower limbs to evaluate for peripheral polyneuropathy Multi Select Codes Neurology Neurology Interp Codes: 99078-88 Musc test done w/n test comp (interp) (2) and 44470-42 Nrv cndj test 9-10 studies (interp)
== END | disposition home or self-care (01) ==
LOC: PSN 12:57
PROVIDERS: PCP Family Medicine; Referring Provider Family Medicine; Visit Provider Family Medicine
DX: R20.0 Anesthesia of skin (principal); R20.2 Paresthesia of skin
CPT/HCPCS: 95886; 95911

== ENCOUNTER → 2023-08-31 | Outpatient (CLI) | payer MEDICARE, OTHER, SELFPAY ==
--- NOTE | 2023-08-31 15:20 | NEURO ---
NCS and/or EMG Patient Report Ordering Doctor: Steve Trejo DATE OF SERVICE: 08/31/23 Matty presents Electrodiagnostic testing of the lower limbs. He reports numbness below the knees bilaterally, worse on the right side. He has a history of lumbar spine surgery. Electrodiagnostic findings: Right peroneal motor nerve demonstrates normal distal latency with reduced amplitude and reduced conduction velocity. Absent peroneal motor response on the left side. Absent tibial motor response bilaterally. Sensory responses were not obtainable. H-reflex prolonged bilaterally. Needle EMG testing was performed in the lower limbs. Motor unit action potentials of increased amplitude and duration noted bilaterally in the peroneus longus and tibialis anterior. Electrodiagnostic impression: This is an abnormal study in the lower limbs. 1. 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 2. There is no electrodiagnostic evidence for lumbosacral radiculopathy. Multi Select Codes Neurology Neurology Interp Codes: 46654-65 Musc test done w/n test comp (interp) (2) and 29262-19 Nrv cndj test 9-10 studies (interp)
== END | disposition home or self-care (01) ==
LOC: PSN 06:57
PROVIDERS: PCP Family Medicine; Referring Provider Family Medicine; Visit Provider Family Medicine
DX: R20.0 Anesthesia of skin (principal); R20.2 Paresthesia of skin
CPT/HCPCS: 95886; 95911

== ENCOUNTER 2023-09-09 08:32 | Day surgery (SDC) | payer OTHER, SELFPAY ==
[2023-09-09 09:11] VITALS: BP 128/75; PULSE 54; RESP 16; TEMP 36.2; O2SAT 96; BMI 34.9
[2023-09-09] MEDS: Lactated Ringers 1,000 ML 15 ML IV (09:19)
[2023-09-09 09:29] LABS: Bedside Glucose 77 mg/dL (74-106)
[2023-09-09] MEDS: Bupiv/Epi 0.25% 30 ML Vial (10:39)
[2023-09-09] MEDS: Lidocaine 0.5% (50 ml) 50 ML Vial (10:39)
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
[2023-09-09] MEDS: VIAFLEX IV (11:25)
[2023-09-09] MEDS: HYDROMORPHONE HP IV (11:25)
[2023-09-09 12:02] VITALS: BP 128/75; BP 139/88; PULSE 49; RESP 16; TEMP 36.4; O2SAT 100
[2023-09-09 12:05] VITALS: BP 128/75; BP 149/85; PULSE 48; RESP 16; O2SAT 100
[2023-09-09 12:10] VITALS: BP 128/75; BP 143/84; PULSE 51; RESP 16; O2SAT 99
[2023-09-09 12:15] VITALS: BP 128/75; BP 142/87; PULSE 50; RESP 17; TEMP 36.5; O2SAT 100
[2023-09-09 12:29] VITALS: BP 128/75
== END 2023-09-09 13:19 | disposition home or self-care (01) ==
PROVIDERS: PCP Family Medicine; Referring Provider Anesthesiology Pain Medicine; Visit Provider Anesthesiology Pain Medicine
PROC: (CPT 62362; principal; 2023-09-09 09:45)
DX: Z45.1 Encounter for adjustment and management of infusion pump (principal); M96.1 Postlaminectomy syndrome, not elsewhere classified; Z99.81 Dependence on supplemental oxygen; Z90.49 Acquired absence of other specified parts of digestive tract; I10 Essential (primary) hypertension; Z79.899 Other long term (current) drug therapy
CPT/HCPCS: 62362; 72020; 76000; 82962; J7120

== ENCOUNTER → 2024-01-17 | Outpatient (CLI) | payer MEDICARE, OTHER, SELFPAY ==
[2024-01-17 14:25] LABS: Albumin, Serum 3.1 g/dL (3.2-5.0); BUN 30 mg/dL (7-18); BUN/Creat Ratio 12.5 RATIO (10-20); Calcium,Total 9.7 mg/dL (8.5-10.1); Chloride 105 mmol/L (98-107); EST Glomerular Filtration Rate 28 mL/min (>60); Est Glom Filt Rate - Afr Amer 34 mL/min (>60); Glucose 175 mg/dL (74-106); Phosphorus 2.5 mg/dL (2.5-4.9); Potassium 5.2 mmol/L (3.5-5.1); Sodium Level 136 mmol/L (136-145)
== END | disposition home or self-care (01) ==
LOC: LAB 13:28
PROVIDERS: PCP Family Medicine; Referring Provider Internal Medicine Nephrology; Visit Provider Internal Medicine Nephrology
DX: E11.22 Type 2 diabetes mellitus with diabetic chronic kidney disease (principal); N18.4 Chronic kidney disease, stage 4 (severe)
CPT/HCPCS: 36415; 80069; 82570; 84156

== ENCOUNTER → 2024-04-02 | Outpatient (CLI) | payer MEDICARE, OTHER, SELFPAY ==
[2024-04-02 14:32] LABS: Anion Gap 3 (5-15); BUN 42 mg/dL (7-18); BUN/Creat Ratio 15.1 RATIO (10-20); Calcium,Total 9.7 mg/dL (8.5-10.1); Chloride 108 mmol/L (98-107); Creatinine, Serum 2.78 mg/dL (0.70-1.30); EST Glomerular Filtration Rate 24 mL/min (>60); Est Glom Filt Rate - Afr Amer 29 mL/min (>60); Glucose 87 mg/dL (74-106); Potassium 4.6 mmol/L (3.5-5.1); Sodium Level 140 mmol/L (136-145)
== END | disposition home or self-care (01) ==
LOC: LAB 13:17
PROVIDERS: PCP Family Medicine; Referring Provider Internal Medicine Nephrology; Visit Provider Internal Medicine Nephrology
DX: E87.5 Hyperkalemia (principal)
CPT/HCPCS: 36415; 80048

== ENCOUNTER → 2024-07-05 | Outpatient (CLI) | payer MEDICARE, OTHER, SELFPAY ==
[2024-07-05 13:35] LABS: Phosphorus 3.5 mg/dL (2.7-4.5)
[2024-07-05 14:56] LABS: Albumin, Serum 3.5 g/dL (3.4-4.8); Anion Gap 11 (5-15); BUN 36 mg/dL (4-19); BUN/Creat Ratio 16.8 RATIO (10-20); Carbon Dioxide 24.5 mmol/L (21.0-32.0); Chloride 102 mmol/L (98-108); Creatinine, Serum 2.16 mg/dL (0.70-1.20); EST Glomerular Filtration Rate 32 (>60); Glucose 140 mg/dL (70-99); Potassium 5.1 mmol/L (3.3-5.1); Sodium Level 137 mmol/L (133-145)
== END | disposition home or self-care (01) ==
LOC: LAB 12:06
PROVIDERS: PCP Family Medicine; Referring Provider Internal Medicine Nephrology; Visit Provider Internal Medicine Nephrology
DX: N18.4 Chronic kidney disease, stage 4 (severe) (principal)
CPT/HCPCS: 36415; 80069

== ENCOUNTER 2024-07-09 12:30 | Emergency (ER) | payer MEDICARE, OTHER, SELFPAY ==
[2024-07-09 12:33] VITALS: BP 144/76; PULSE 71; RESP 19; TEMP 36.9
[2024-07-09] MEDS: Naloxone 2 MG/2 ML Syringe NASAL (12:40)
[2024-07-09] MEDS: Naloxone 0.4 MG/ML Syringe IV ×3 (12:44→12:59)
[2024-07-09] MEDS: Ondansetron 4 MG/2 ML Vial IV (12:50)
[2024-07-09 12:52] VITALS: BP 137/79; PULSE 71; RESP 25; O2SAT 93
[2024-07-09] MEDS: 0.9% Normal Saline (1000mL) 1,000 ML 999 ML IV (12:54)
[2024-07-09 13:07] VITALS: BP 159/104; PULSE 83; RESP 28; O2SAT 97
--- NOTE | 2024-07-09 13:08 | EKG12_ITS ---
Test Reason : Blood Pressure : */* mmHG Vent. Rate : 65 BPM Atrial Rate : 65 BPM P-R Int : 156 ms QRS Dur : 114 ms QT Int : 426 ms P-R-T Axes : 23 -32 29 degrees QTcB Int : 443 ms Normal sinus rhythm Left axis deviation Incomplete left bundle branch block Minimal voltage criteria for LVH, may be normal variant ( Robbie product ) Abnormal ECG Confirmed by OK ARZOLA, KRISTINA ([id number]), publishing editor MEIR DING ([id number]) on 07/11/2024 8:15:44 AM Referred By: AKUA Confirmed By: KRISTINA EUCEDA MD
[2024-07-09 13:22] LABS: Absolute Lymphocyte Count 2.24 X10^3/uL (0.83-4.51); Absolute Neutrophil Count 2.3 X10^3/uL (2.0-7.7); Basophil# 0.05 X10^3/uL; Eosinophil# 0.21 X10^3/uL; Eosinophils% 4.1 % (0-5); Hematocrit 39.3 % (40-54); Hemoglobin 12.8 g/dL (13.0-16.5); Lymphocyte # 2.24 X10^3/ul (0.83-4.51); Lymphocyte % 43.8 % (19-41); Mean Corp Hgb Conc 32.6 g/dL (32-36); Mean Corpuscular Hgb 29.5 pg (27.0-32.0); Mean Corpuscular Volume 90.6 fL (80-94); Mean Platelet Vol. 10.6 fl (6.2-12.0); Monocyte# 0.32 X10^3/uL; Monocyte% 6.3 % (0-10); NRBC Flagged by Analyzer 0 % (0-5); Neutrophil # 2.27 X10^3/uL (2.7-7.7); Neutrophil % 44.2 % (47-70); Platelet Count 118 K/mm3 (150-450); RBC Distribution Width CV 11.6 % (11.6-14.6); RBC Distribution Width SD 38.7 fl (35.1-43.9); Red Blood Count 4.34 M/mm3 (4.6-6.2); White Blood Count 5.1 K/mm3 (4.4-11.0)
--- NOTE | 2024-07-09 13:25 | CT_ITS ---
EXAM: CT Head Without Intravenous Contrast CLINICAL INDICATION: AMS TECHNIQUE: Axial computed tomography images of the head/brain without intravenous contrast. This CT exam was performed using one or more of the following dose reduction techniques: automated exposure control, adjustment of the mA and/or kV according to patient size, and/or use of iterative reconstruction technique. COMPARISON: No relevant prior studies available. FINDINGS: ARTIFACTS: Motion artifact. BRAIN AND EXTRA-AXIAL SPACES: No acute intracranial hemorrhage, midline shift or mass effect. If symptoms persist, further evaluation with MRI is recommended. No significant white matter disease. BONES/JOINTS: Unremarkable. No acute fracture. SOFT TISSUES: Unremarkable. SINUSES: Unremarkable as visualized. No acute sinusitis. MASTOID AIR CELLS: Unremarkable as visualized. No mastoid effusion. CT/Brain/Head without Contrast IMPRESSION: No acute intracranial hemorrhage, midline shift or mass effect. If symptoms per sist, further evaluation with MRI is recommended. Reading [facility]
[2024-07-09 13:31] LABS: International Normalized Ratio 1.1; Prothrombin Time (Protime)PT. 13.9 SECONDS (11.7-14.9)
[2024-07-09 13:32] LABS: Partial Thromboplast Time 26.6 Seconds (24.1-36.2)
--- NOTE | 2024-07-09 13:39 | RAD_ITS ---
EXAM: XR Chest, 1 View CLINICAL INDICATION: ALTERED MENTAL STATUS TECHNIQUE: Frontal view of the chest. COMPARISON: No relevant prior studies available. FINDINGS: LUNGS AND PLEURAL SPACES: See below. HEART: Cardiomegaly with mild congestion. MEDIASTINUM: Unremarkable. Normal mediastinal contour. BONES/JOINTS: Unremarkable. No acute fracture. RAD/Chest 1 View (Portable) IMPRESSION: Cardiomegaly with mild congestion. Reading [facility]
[2024-07-09 13:47] LABS: Alcohol, Blood (Medical)-Serum < 10.1 mg/dL (<=10.0)
[2024-07-09 14:00] VITALS: BP 143/81; PULSE 61; RESP 16; O2SAT 98
[2024-07-09 14:07] LABS: ALB/GLOB Ratio 1.2 RATIO (0.9-2.4); AST(SGOT) 14 U/L (<=37); Alanine Aminotransfer ALT/SGPT 11 U/L (<=46); Albumin, Serum 3.7 g/dL (3.4-4.8); Alkaline Phosphatase 73 U/L (40-129); Anion Gap 10 (5-15); BUN 36 mg/dL (4-19); BUN/Creat Ratio 17.2 RATIO (10-20); Calcium,Total 10.2 mg/dL (7.6-11.0); Carbon Dioxide 25.6 mmol/L (21.0-32.0); Chloride 101 mmol/L (98-108); Creatinine, Serum 2.06 mg/dL (0.70-1.20); EST Glomerular Filtration Rate 34 (>60); Glucose 135 mg/dL (70-99); Potassium 4.8 mmol/L (3.3-5.1); Protein, Total 6.6 g/dL (5.9-8.4); Sodium Level 137 mmol/L (133-145); Total Bilirubin 0.23 mg/dL (0.00-1.30)
[2024-07-09 14:09] LABS: Lactic Acid 2.5 mmol/L (0.0-2.0)
[2024-07-09 14:36] LABS: Magnesium 1.8 mg/dL (1.5-2.2); Troponin T High Sensitivity 24 ng/L (<=22)
[2024-07-09 14:51] LABS: Bedside Glucose 125 mg/dL (74-106)
[2024-07-09 15:06] VITALS: BP 142/85; PULSE 64; RESP 20; O2SAT 91
[2024-07-09 15:15] LABS: Bacteria 0 SEEN /hpf (None Seen); Mucous, Urine 0 SEEN /hpf (<or=2+); Squamous Epithelial Cells - UA 0 SEEN /hpf (0-5); White Blood Cells 0 SEEN /hpf (0-5)
[2024-07-09 15:17] LABS: Color, Urine Yellow (Yellow); Glucose, Dipstick Normal (Normal); Ketone-Dipstick Negative (Negative); Leukocyte Esterase-Dipstick Negative /ul (Negative); Nitrite-Dipstick Negative (Negative); Occult Blood-Urine Negative /ul (Negative); Protein-Dipstick 100 mg/dl (Negative); Specific Gravity, Urine 1.015 (1.002-1.030); Urine Bilirubin Dipstick Negative (Negative); Urine Clarity Clear (Clear); Urine Urobilinogen Normal (Normal)
[2024-07-09 15:23] LABS: Red Blood Cells-Urine 0 SEEN /hpf (0-5)
[2024-07-09 15:42] LABS: Amphetamine Urine NEGATIVE (<1000 ng/mL); Barbiturate Urine NEGATIVE (< 200 ng/mL); Benzodiazepine Urine NEGATIVE (< 200 ng/mL); Buprenorphine Urine NEGATIVE (< 200 ng/mL); Cocaine Urine NEGATIVE (< 300 ng/mL); Fentanyl, Urine NEGATIVE; Methadone Urine NEGATIVE (< 300 ng/mL); Opiates Urine NEGATIVE (< 300 ng/mL); Oxycodone, Urine NEGATIVE (< 100 ng/mL); PCP Urine NEGATIVE (< 25 ng/mL); THC Urine NEGATIVE (< 50 ng/mL)
[2024-07-09 15:43] LABS: Lactic Acid 1.8 mmol/L (0.0-2.0)
[2024-07-09 15:58] LABS: Troponin T High Sens 2 HR 27 ng/L (<=22)
--- NOTE | 2024-07-09 16:13 | EDS_ITS ---
HPI History of Present Illness Chief Complaint: Alt LOC Narrative Narrative: Chief complaint and HPI: Minimally responsive. 74-year-old male with past medical history of chronic back pain with Dilaudid pain pump, DM2 presents for evaluation of minimally responsive. Patient was at pain management where he had just had his Dilaudid pain pump refilled. Shortly after he became minimally responsive in the room and was wheelchair to the emergency department. Patient is somnolent with minimal response to sternal rub. Not answering questions. is in the room and states that the patient had a similar episode a couple weeks ago in which he became minimally responsive in a doctor's office. She states that he was taken to an outlying facility ER where he was ultimately transferred to [facility]. She states he had an extensive workup there including EEG that was unremarkable. denies any fever, chills, chest pain, shortness of breath, nausea, vomiting, diarrhea, dysuria that she knows of. States he has been eating and drinking well. Review of systems: See HPI Medications: As listed on the chart Allergies: As listed on the chart PFSH: Per chart Vital signs: As listed on the chart. Reviewed. Physical exam: Gen: Somnolent, minimally responsive to sternal rub Head: Normocephalic, atraumatic Eyes: No sclera icterus, conjunctiva clear, PERRL but pinpoint ENT: Moist mucous membranes Neck: Trachea midline, No JVD CV: RRR, no murmurs, no peripheral edema Resp: Lungs CTA BL, no w/r/c GI: Abd soft, non-distended, non-tender, no r/r/g, + pain pump located in the abdomen Musc: Minimally moving extremities but all of them move, no deformity Skin: Warm, dry Neuro: Does not follow commands, minimally responsive, somnolent, does not answer questions [facility] Medical History (Updated 07/09/24 @ 16:[address] Jack Lin, ) Loss of hearing Wears glasses Anxiety Diabetes Walker as ambulation aid Ambulates with cane History of renal disease Prostate disease High cholesterol Injury of back Back pain Dietary restriction Non-smoker Sleep apnea On home oxygen therapy History of edema Home Medications ?Medication ?Instructions ?Recorded ?Last Taken ?Type buspirone 15 mg tablet 15 mg PO 4X/DAY 02/16/18 History cholecalciferol (vitamin D3) 50 2,000 unit PO DAILY 09/08/23 History mcg (2,000 unit) capsule (Vitamin D3) furosemide 40 mg tablet (Lasix) 40 mg PO PRN PRN WATER PILL 02/16/18 Unknown History glimepiride 2 mg tablet 2 mg PO DAILY 02/16/1809/07 History hydromorphone (PF) 10 mg/mL 0.2 mg IV UD 02/16/1808/17 History injection solution (Dilaudid-HP (PF)) hydroxyzine HCl 25 mg tablet 25 mg PO Q6H PRN PRN Anxi ety 02/16/18 09/08/23 History metoprolol tartrate 100 mg tablet 50 mg PO BID 8 09/09/23 History olanzapine 10 mg tablet 10 mg PO QHS 02/16/18 History omega 9-nob-orc-fish oil 300 1 ea PO BID 02/16/1808/17 History mg-1,000 mg capsule (Fish Oil) omeprazole 20 mg capsule,delayed 20 mg PO DAILY 09/09/23 History release pravastatin 40 mg tablet 40 mg PO QHS 02/16/18 History tapentadol 100 mg tablet (Nucynta) 100 mg PO Q4H PRN P ain 02/16/18 09/09/23 History tizanidine 4 mg capsule (Zanaflex) 4 mg PO TID PRN Mus willy Spasm 02/16/18 Unknown History losartan 25 mg tablet 25 mg PO DAILY 08/30/2308/17 History tamsulosin 0.4 mg capsule 0.4 mg PO DAILY 08/30/23 History trazodone 100 mg tablet 100 mg PO QHS 08/30/2309/07 History bupropion HCl 300 mg 24 hr tablet, 300 mg PO 07/09/24 Unknown History extended release carbidopa 25 mg-levodopa 100 mg 1.5 tab PO TID 5 Unknown History tablet lidocaine 5 % topical patch 1 patch topical DAILY 3 da ys #3 ea 07/09/24 Unknown Rx (Lidoderm) Allergy/AdvReac Type Severity Reaction Status Date / Time No Known Allergies Allergy Verified 09/09/23 09:07 Surgical History (Updated 08/30/23 @ 14:08 by Lynn Pop) History of cholecystectomy History of back surgery Social History Smoking Status: Never smoker EXAM Physical Exam Const Vital Signs: 07/09/24 12:33 07/09/24 12:52 07/09/24 13:07 Temperature 98.5 F Temperature Source Oral Pulse Rate 71 71 83 Respiratory Rate 19 H 25 H 28 H Blood Pressure 144/76 H 137/79 H 159/104 H Blood Pressure Mean 98 98 122 Pulse Ox 93 97 Oxygen Delivery Method Room Air Nasal Cannula Oxygen Flow Rate (L/min) 2 07/09/24 14:00 07/09/24 15:06 07/09/24 16:34 Temperature 98.5 F Temperature Source Pulse Rate 61 64 64 Respiratory Rate 16 20 H 20 H Blood Pressure 143/81 H 142/85 H 148/72 H Blood Pressure Mean 101 104 97 Pulse Ox 98 91 99 Oxygen Delivery Method Room Air Oxygen Flow Rate (L/min) MDM MDM MDM Narrative Medical decision making narrative: 74-year-old male with past medical history of chronic back pain with Dilaudid pain pump, DM2 presents for evaluation of minimally responsive. Patient was at pain management where he had just had his Dilaudid pain pump refilled. Shortly after he became minimally responsive in the room and brought to the emergency department. On presentation patient is somnolent. Minimally responsive to sternal rub. Not answering questions. Patient has pinpoint pupils. Concern is for opiate overdose. While IVs were being placed patient was given 2 mg of intranasal Narcan. There was no improvement in his mentation and therefore 0.4 mg IV Narcan ordered. Patient began to moan and open his eyes. He is responsive to the Narcan therefore more was given. He was given a total 1.4 mg IV Narcan. Patient now opening his eyes. Stating he feels very fatigued. He is shivering, yawning, nauseated. Patient becomes alert but then less responsive again. His glucose is normal. Pain pump still running. Will start naloxone drip. I spoke with pain management that my concern is opiate overdose. Dr. Matthews states that he will send someone to turn off the pain pump. NS bolus ordered. Although concern is for opiate overdose, will assess for other etiology such as electrolyte abnormality,UTI, dehydration, substance abuse, intracranial abnormality. Story is not consistent with CVA or seizure. Suspect less likely ACS. Shortly after patient's Dilaudid pump was stopped and he returned from CT, patient is responsive and at his neurological baseline. He is alert and able to answer all orientation questions. He has full range of motion. Patient was updated that my concern is for opiate overdose from his pain pump as his symptoms resolved with Narcan. He states that during his previous episode his symptoms had resolved with Narcan as well. Given patient is at his neurological baseline. Naloxone drip was not started. Patient will be monitored. EKG and chest x-ray reviewed. See below. CT head without any acute intracranial abnormality. Labs took a while to result as there was malfunctioning with the lab reader today. CBC without leukocytosis. Patient has anemia of 12.8. On chart review, patient has history of anemia in the past. The last labs I have are from 2022. Patient denies any bleeding or dark stools. Patient has baseline thrombocytopenia. Coagulation panel unremarkable. Patient's lactic is elevated at 2.5. Fluids running. Will recheck after bolus. May be due to mild dehydration. CMP relatively unremarkable except for baseline CKD. His CKD may be contributing to the opiate overdose as he is less likely to clear opiates. Troponins 24 and 27. Patient not having any chest pain. Low suspicion for ACS. UA negative for UTI. Urine drug screen negative. Ethanol level unremarkable. On reevaluation, patient has remained alert and at his neurological baseline. He has no complaints other than back pain as his Dilaudid pump was stopped. He was able to ambulate. His vitals have remained stable. Given the patient's symptoms improved with Narcan and discontinuation of the Dilaudid pump I suspect his symptoms were due to opiate overdose. I spoke with pain management again Dr. Matthews. I told him of my concern with the pain pump and for the diagnosis of opioid overdose. He states that he will leave the pain pump off for now and we will reevaluate the patient in 2 days. At that time he will likely restart the pump at half the dose. He states that he wrote a pain prescription to the pharmacy for the patient to take while his Dilaudid pump is off. Plan is for patient to discharge home. On reevaluation, patient endorsing back pain therefore Lidoderm patch was placed. Will prescribe him with 3 days worth as a prescription. Patient and confirmed understanding of the plan. They were updated of all the results and all que stions were answered. Patient stable to discharge home. Return precautions explained. EKG: Interpreted by me/EM physician: EKG shows normal sinus rhythm with a heart rate of 65. Is an incomplete left bundle. No acute ischemic changes. Last EKG to compare to is from 2006. Diagnostic: Interpreted by me/EM physician: Chest x-ray without pneumonia, effusion, cardiomegaly, pneumothorax 35 minutes of critical care time utilized in managing the patient. This is due to high probability of and deterioration of the patient based on the patient's condition and excludes any separately billable procedures. Impression: 1. Accidental opioid overdose, patient had Dilaudid pain pump 2. Anemia, suspect chronic 3. Chronic thrombocytopenia 4. History of CKD Lab Data Labs: Laboratory Results - last 24 hr 07/09/24 07/09/24 07/09/24 12:49 13:00 13:17 WBC 5.1 RBC 4.34 L Hgb 12.8 L Hct 39.3 L MCV 90.6 MCH 29.5 MCHC 32.6 RDW Std Deviation 38.7 RDW Coeff of Kathy 11.6 Plt Count 118 L MPV 10.6 Immature Gran % (Auto) 0.600 Neut % (Auto) 44.2 L Lymph % (Auto) 43.8 H Taylor % (Auto) 6.3 Eos % (Auto) 4.1 Baso % (Auto) 1.0 Absolute Neuts (auto) 2.3 Absolute Lymphs (auto) 2.24 Nucleated RBC % 0 PT 13.9 INR 1.1 APTT 26.6 Sodium 137 Potassium 4.8 Chloride 101 Carbon Dioxide 25.6 Anion Gap 10 BUN 36 H Creatinine 2.06 H Est GFR (MDRD) Non-Af 34 L BUN/Creatinine Ratio 17.2 Glucose 135 H Lactic Acid 2.5 H* Calcium 10.2 Magnesium 1.8 Total Bilirubin 0.23 AST 14 ALT 11 Alkaline Phosphatase 73 Troponin T High Sens 24 H Troponin T Hi Sens 2 Hr Total Protein 6.6 Albumin 3.7 Globulin 3.0 Albumin/Globulin Ratio 1.2 Urine Color Urine Clarity Urine pH Ur Specific Baltic Urine Protein Urine Glucose (UA) Urine Ketones Urine Occult Blood Urine Nitrite Urine Bilirubin Urine Urobilinogen Ur Leukocyte Esterase Urine RBC Urine WBC Ur Squamous Epith Cells Urine Bacteria Urine Mucus Urine Opiates Screen U Buprenorphine Qual Ur Oxycodone Screen Urine Methadone Screen Urine Fentanyl Screen Ur Barbiturates Screen Ur Phencyclidine Scrn Ur Amphetamines Screen U Benzodiazepines Scrn Urine Cocaine Screen U Cannabinoids Screen Ethyl Alcohol < 10.1 POC Glucose 125 H 07/09/24 07/09/24 07/09/24 14:28 14:34 15:33 WBC RBC Hgb Hct MCV MCH MCHC RDW Std Deviation RDW Coeff of Kathy Plt Count MPV Immature Gran % (Auto) Neut % (Auto) Lymph % (Auto) Taylor % (Auto) Eos % (Auto) Baso % (Auto) Absolute Neuts (auto) Absolute Lymphs (auto) Nucleated RBC % PT INR APTT Sodium Potassium Chloride Carbon Dioxide Anion Gap BUN Creatinine Est GFR (MDRD) Non-Af BUN/Creatinine Ratio Glucose Lactic Acid 1.8 Calcium Magnesium Total Bilirubin AST ALT Alkaline Phosphatase Troponin T High Sens Troponin T Hi Sens 2 Hr 27 H Total Protein Albumin Globulin Albumin/Globulin Ratio Urine Color Yellow Urine Clarity Clear Urine pH 6.0 Ur Specific Baltic 1.015 Urine Protein 100 H Urine Glucose (UA) Normal Urine Ketones Negative Urine Occult Blood Negative Urine Nitrite Negative Urine Bilirubin Negative Urine Urobilinogen Normal Ur Leukocyte Esterase Negative Urine RBC 0 SEEN Urine WBC 0 SEEN Ur Squamous Epith Cells 0 SEEN Urine Bacteria 0 SEEN Urine Mucus 0 SEEN Urine Opiates Screen NEGATIVE U Buprenorphine Qual NEGATIVE Ur Oxycodone Screen NEGATIVE Urine Methadone Screen NEGATIVE Urine Fentanyl Screen NEGATIVE Ur Barbiturates Screen NEGATIVE Ur Phencyclidine Scrn NEGATIVE Ur Amphetamines Screen NEGATIVE U Benzodiazepines Scrn NEGATIVE Urine Cocaine Screen NEGATIVE U Cannabinoids Screen NEGATIVE Ethyl Alcohol POC Glucose Radiography Diagnostic Testing: Clinical Impression(s) from Imaging Studies Brain CT 07/09/24 13:25 IMPRESSION: No acute intracranial hemorrhage, midline shift or mass effect. If symptoms persist, further evaluation with MRI is recommended. Reading [facility] Chest X-Ray 07/09/24 13:39 IMPRESSION: Cardiomegaly with mild congestion. Reading [facility] Discharge Plan Triage Chief Complaint: Alt LOC ED Provider: Jack Lin Dx/Rx/DC Orders Clinical Impression: Overdose opiate Instructions: ED Overdose, Opiate Prescriptions: New lidocaine [Lidoderm] 5 % adhesive patch,medicated 1 patch topical DAILY 3 Days Qty: 3 0RF Rx Instructions: leave on most painful area for up to 12 hrs No Action furosemide [Lasix] 40 MG tablet 40 mg PO PRN PRN (Reason: WATER PILL) pravastatin 40 MG tablet 40 mg PO QHS metoprolol tartrate 100 MG tablet 50 mg PO BID olanzapine 10 MG tablet 10 mg PO QHS glimepiride 2 MG tablet 2 mg PO DAILY omeprazole 20 MG capsule 20 mg PO DAILY hydroxyzine HCl 25 MG tablet 25 mg PO Q6H PRN PRN (Reason: Anxiety) buspirone 15 MG tablet 15 mg PO 4X/DAY tizanidine [Zanaflex] 4 MG capsule 4 mg PO TID PRN (Reason: Muscle Spasm) hydromorphone (PF) [Dilaudid-HP (PF)] 0.2 MG/ML solution 0.2 mg IV UD Patient Comments: reason for current outpt procedure cholecalciferol (vitamin D3) [Vitamin D3] 2,000 UNIT capsule 2,000 unit PO DAILY Nucynta 100 MG tablet 100 mg PO Q4H PRN (Reason: Pain) omega 3-[id number]-fish oil [Fish Oil] 1 EACH capsule 1 ea PO BID tamsulosin 0.4 mg capsule 0.4 mg PO DAILY trazodone 100 mg tablet 100 mg PO QHS losartan 25 mg tablet 25 mg PO DAILY carbidopa-levodopa 25-100 mg tablet 1.5 tab PO TID bupropion HCl 300 mg tablet extended release 24 hr 300 mg PO Primary Care Provider: Steve Trejo Referrals: [facility] [Outside] - 2 Days Steve Trejo MD [Primary Care Provider] - 3-5 Days Activity Restrictions/Additional Instructions: Follow-up with pain management in 2 days. Call their office tomorrow to schedule this. They will restart your pump at one half the rate. radiology supervisor your prescription that the pain management perscribed to help with your pain. Will give Lidoderm patches. Print Language: Kyrgyz Disposition Disposition: Home, Self Care Discharge Date/Time: 07/09/24 16:56
[2024-07-09] MEDS: Lidocaine 5% Patch 1 PATCH TOPICAL (16:33)
[2024-07-09 16:34] VITALS: BP 148/72; PULSE 64; RESP 20; TEMP 36.9; O2SAT 99
== END 2024-07-09 16:56 | disposition home or self-care (01) ==
PROVIDERS: Emergency Provider Surgery; PCP Family Medicine; Visit Provider Surgery
DX: T40.2X1A Poisoning by other opioids, accidental (unintentional), initial encounter (principal); E11.22 Type 2 diabetes mellitus with diabetic chronic kidney disease; N18.9 Chronic kidney disease, unspecified; M54.9 Dorsalgia, unspecified; D64.9 Anemia, unspecified; G89.29 Other chronic pain; E78.00 Pure hypercholesterolemia, unspecified; F41.9 Anxiety disorder, unspecified; Z79.899 Other long term (current) drug therapy; Z79.84 Long term (current) use of oral hypoglycemic drugs; Z90.49 Acquired absence of other specified parts of digestive tract; D69.6 Thrombocytopenia, unspecified; Z97.8 Presence of other specified devices; Z79.891 Long term (current) use of opiate analgesic
CPT/HCPCS: 70450; 71045; 80053; 80307; 81001; 82077; 82962; 83605; 83735; 84484; 85025; 85610; 85730; 93005; 96361; 96374; 96375; 99284; A4216; J2310; J2405

== ENCOUNTER → 2025-01-29 | Outpatient (CLI) | payer MEDICARE, OTHER, SELFPAY ==
[2025-01-29 13:33] LABS: Creatinine, Urine (random) 71.70 mg/dL (39.00-259.00); Protein, Urine (Random) 110.0 mg/dL (0.0-12.0); Protein:Creat Ratio 1534 mg/g CRE (0-200)
[2025-01-29 14:14] LABS: PTHIN 97 pg/mL (11-61)
[2025-01-29 14:19] LABS: Anion Gap 10 (5-15); BUN 34 mg/dL (4-19); BUN/Creat Ratio 17.2 RATIO (10-20); Calcium,Total 9.7 mg/dL (7.6-11.0); Carbon Dioxide 24.6 mmol/L (21.0-32.0); Chloride 102 mmol/L (98-108); Glucose 113 mg/dL (70-99); Potassium 5.4 mmol/L (3.3-5.1)
== END | disposition home or self-care (01) ==
LOC: LAB 11:45
PROVIDERS: PCP Family Medicine; Referring Provider Internal Medicine Nephrology; Visit Provider Internal Medicine Nephrology
DX: N25.81 Secondary hyperparathyroidism of renal origin (principal); N18.4 Chronic kidney disease, stage 4 (severe); E11.22 Type 2 diabetes mellitus with diabetic chronic kidney disease
CPT/HCPCS: 36415; 80048; 82570; 83970; 84156